=== PATIENT | female | born 1985 | race Hispanic/Latino ===

== ENCOUNTER 2019-01-11 15:28 | Emergency (ER) | payer OTHER ==
[2019-01-11 17:13] LABS: APPEARANCE,URINE Clear (CLEAR); BILIRUBIN,URINE Negative (NEGATIVE); COLOR,URINE Yellow (YELLOW); GLUCOSE, URINE (UA) Negative (NEGATIVE); KETONES,URINE Negative (NEGATIVE); LEUKOCYTE ESTERASE ,URINE Moderate (NEGATIVE); NITRATE,URINE Negative (NEGATIVE); OCCULT BLOOD,URINE Negative (NEGATIVE); PH,URINE 5.5 (5.0-8.0); PROTEIN,URINE Negative (NEGATIVE); UROBILINOGEN,URINE 0.2 mg/dL (0.2-1.0)
[2019-01-11 17:18] LABS: BACTERIA,URINE Few /HPF (None Seen); RBC,URINE None Seen /HPF (0-1)
[2019-01-11] MEDS ORDERED: LIDOCAINE HCL-MPF 1% 2ML VIAL ONE (17:55)
[2019-01-11] MEDS ORDERED: PHENAZOPYRIDINE HCL 200 MG TABLET ONE (17:55)
[2019-01-11] MEDS ORDERED: CEFTRIAXONE SODIUM 1 GM ONE (17:55)
== END 2019-01-11 18:35 | disposition home or self-care (01) ==
LOC: EDH 15:28
DX: N39.0 Urinary tract infection, site not specified (principal); Z98.51 Tubal ligation status; Z72.0 Tobacco use
CPT/HCPCS: 81001; 81025; 96372; 99284; J0696; J3490

== ENCOUNTER 2020-02-06 03:51 | Emergency (ER) | payer SELFPAY ==
[2020-02-06 04:12] LABS: APPEARANCE,URINE TURBID (CLEAR); BILIRUBIN,URINE NEGATIVE (NEGATIVE); GLUCOSE, URINE (UA) NEGATIVE (NEGATIVE); KETONES,URINE NEGATIVE (NEGATIVE); LEUKOCYTE ESTERASE ,URINE LARGE (NEGATIVE); NITRATE,URINE NEGATIVE (NEGATIVE); OCCULT BLOOD,URINE SMALL (NEGATIVE); PROTEIN,URINE 30 mg/dL (NEGATIVE); UROBILINOGEN,URINE 0.2 mg/dL (0.2-1.0)
[2020-02-06 04:15] LABS: COLOR,URINE COLORLESS (YELLOW)
[2020-02-06 04:19] LABS: HCG,QUAL RESULT NEGATIVE (NEGATIVE)
[2020-02-06 04:22] LABS: AMPHET/METH SCREEN,URINE NEGATIVE (NEGATIVE); BARBITURATE SCREEN, URINE NEGATIVE (NEGATIVE); BENZODIAZEPINES SCREEN,URINE NEGATIVE (NEGATIVE); CANNABINOID SCREEN,URINE NEGATIVE (NEGATIVE); OPIATE SCREEN,URINE NEGATIVE (NEGATIVE)
[2020-02-06 04:22] LABS: BASOPHILS % (AUTO) 0.3 % (0.0-5.0); EOSINOPHILS % (AUTO) 0.1 % (0.0-8.0); HEMATOCRIT 39.8 % (36-48); LYMPHOCYTES % (AUTO) 14.8 % (21.0-51.0); MEAN CORPUSCULAR HEMOGLOBIN 27.9 pg (27.0-33.0); MEAN CORPUSCULAR HGB CONC 33.4 g/dL (32.0-36.0); MEAN CORPUSCULAR VOLUME 83.6 fL (79-99); MONOCYTES % (AUTO) 3.8 % (3.0-13.0); NEUTROPHILS % (AUTO) 80.7 % (40.0-77.0); PLATELET COUNT (AUTO) 344 K/uL (130-400); RED BLOOD CELL COUNT(AUTO) 4.76 MIL/uL (4.00-5.50); RED CELL DISTRIBUTION WIDTH 14.9 % (11.0-15.5); WHITE BLOOD COUNT (AUTO) 8.8 K/uL (4.8-10.8)
[2020-02-06 04:27] LABS: BACTERIA,URINE Moderate /HPF (None Seen); SQUAMOUS EPITHELIAL CELL,UR 30-50 /HPF (0-2); TRICHOMONAS,URINE Many /LPF (None Seen)
[2020-02-06 04:35] LABS: CARBON DIOXIDE 20 mmol/L (21-32); CHLORIDE 105 mmol/L (101-111); CREATININE 0.6 mg/dL (0.5-1.5); GLOMERULAR FILTR. RATE CALC 120 mL/min (>60); GLUCOSE,RANDOM 116 mg/dL (70-105); POTASSIUM 3.7 mmol/L (3.5-5.1); SODIUM SERUM 140 mmol/L (136-145); UREA NITROGEN, BLOOD 4 mg/dL (7-18)
[2020-02-06 04:41] LABS: ALANINE AMINOTRANSFERASE 17 U/L (12-78); ALCOHOL, BLOOD 153 mg/dL (0-10); ASPARTATE AMINOTRANSFERASE 18 U/L (10-37); BILIRUBIN,TOTAL 0.2 mg/dL (0.2-1.0); TOTAL PROTEIN, SERUM 8.2 g/dL (6.0-8.3)
[2020-02-06 04:45] LABS: ACETAMINOPHEN < 1 mcg/mL (10-30); SALICYLATE < 2.8 mg/dL (2.8-20.0)
[2020-02-06 05:06] LABS: COCAINE SCREEN,URINE POSITIVE (NEGATIVE); PHENCYCLIDINE SCREEN,URINE NEGATIVE (NEGATIVE)
[2020-02-06] MEDS ORDERED: SODIUM CHLORIDE 0.9% 1000ML 1,000 ML IV ONE (08:47)
[2020-02-06] MEDS ORDERED: CEFTRIAXONE SODIUM 1 GM ONE (08:48)
== END 2020-02-06 11:53 | disposition home or self-care (01) ==
LOC: EDH 03:51
DX: S50.811A Abrasion of right forearm, initial encounter (principal); F14.10 Cocaine abuse, uncomplicated; A59.9 Trichomoniasis, unspecified; F10.129 Alcohol abuse with intoxication, unspecified; X78.1XXA Intentional self-harm by knife, initial encounter; Y93.89 Activity, other specified; Y92.89 Other specified places as the place of occurrence of the external cause; Y99.8 Other external cause status
CPT/HCPCS: 36415; 80053; 80305; 81001; 81025; 85025; 87088; 96374; 99283; G0480 ×3; G0481; J0696; J7030

== ENCOUNTER 2021-06-16 13:57 | Emergency (ER) | payer SELFPAY ==
[~2021-06-16] VITALS: Ht 160 cm; Wt 68.0 kg
[2021-06-16 14:43] LABS: APPEARANCE,URINE Cloudy (CLEAR); BILIRUBIN,URINE Negative (NEGATIVE); COLOR,URINE Yellow (YELLOW); GLUCOSE, URINE (UA) Negative (NEGATIVE); KETONES,URINE Trace mg/dL (NEGATIVE); LEUKOCYTE ESTERASE ,URINE Moderate (NEGATIVE); NITRATE,URINE Negative (NEGATIVE); OCCULT BLOOD,URINE Negative (NEGATIVE); PH,URINE 5.5 (5.0-8.0); PROTEIN,URINE Negative (NEGATIVE)
[2021-06-16 14:46] LABS: HCG,QUAL RESULT NEGATIVE (NEGATIVE)
[2021-06-16 14:51] LABS: AMPHET/METH SCREEN,URINE NEGATIVE (NEGATIVE); BARBITURATE SCREEN, URINE NEGATIVE (NEGATIVE); BENZODIAZEPINES SCREEN,URINE NEGATIVE (NEGATIVE); CANNABINOID SCREEN,URINE NEGATIVE (NEGATIVE); COCAINE SCREEN,URINE POSITIVE (NEGATIVE); OPIATE SCREEN,URINE NEGATIVE (NEGATIVE); PHENCYCLIDINE SCREEN,URINE NEGATIVE (NEGATIVE)
[2021-06-16 15:00] LABS: BASOPHILS % (AUTO) 0.7 % (0.0-5.0); EOSINOPHILS % (AUTO) 1.8 % (0.0-8.0); HEMATOCRIT 42.4 % (36-48); LYMPHOCYTES % (AUTO) 21.3 % (21.0-51.0); MEAN CORPUSCULAR HEMOGLOBIN 29.9 pg (27.0-33.0); MEAN CORPUSCULAR HGB CONC 33.5 g/dL (32.0-36.0); MEAN CORPUSCULAR VOLUME 89.3 fL (79-99); NEUTROPHILS % (AUTO) 70.9 % (40.0-77.0); PLATELET COUNT (AUTO) 304 K/uL (130-400); RED BLOOD CELL COUNT(AUTO) 4.75 MIL/uL (4.00-5.50); RED CELL DISTRIBUTION WIDTH 14.6 % (11.0-15.5); WHITE BLOOD COUNT (AUTO) 7.6 K/uL (4.8-10.8)
[2021-06-16 15:11] LABS: BACTERIA,URINE Moderate /HPF (None Seen); MUCUS,URINE Moderate LPF (None Seen); SQUAMOUS EPITHELIAL CELL,UR Many /HPF (0-2)
[2021-06-16 15:20] LABS: CREATININE 0.7 mg/dL (0.5-1.5); POTASSIUM 4.2 mmol/L (3.5-5.1)
[2021-06-16 15:24] LABS: ALBUMIN 3.6 g/dL (3.5-5.0); BILIRUBIN,TOTAL 0.3 mg/dL (0.2-1.0); TOTAL PROTEIN, SERUM 7.6 g/dL (6.0-8.3)
[2021-06-16 15:29] LABS: HCG,QUANTITATIVE 0 mIU/mL (0-5); LIPASE 106 U/L (114-286)
[2021-06-16] MEDS ORDERED: PHENAZOPYRIDINE HCL 200 MG TABLET PO ONE (15:30)
[2021-06-16] MEDS ORDERED: CEFTRIAXONE 1G VIAL IM ONE (15:30)
[2021-06-16] MEDS ORDERED: IBUP-1552 PO (16:29)
[2021-06-16] MEDS ORDERED: CEPH500B PO (16:29)
[2021-06-16] MEDS ORDERED: PHEN-847 PO (16:29)
[2021-06-16] MEDS ORDERED: LACT10PA5 PO (16:29)
[2021-06-16] MEDS ORDERED: MAGNESIUM CITRATE 296 ML SOLUTION PO ONE (16:30)
[2021-06-16] MEDS ORDERED: LACTULOSE 20 GM/30 ML UDCUP PO ONE (16:30)
[2021-06-16 16:33] VITALS: BP 125/77
== END 2021-06-16 16:57 | disposition home or self-care (01) ==
LOC: EDH 13:57
DX: N39.0 Urinary tract infection, site not specified (principal); N83.202 Unspecified ovarian cyst, left side; K59.00 Constipation, unspecified; F14.10 Cocaine abuse, uncomplicated
CPT/HCPCS: 36415; 74176; 80053; 80305; 81001; 81025; 82140; 83690 ×2; 84702; 85025; 87088; 96372; 99284; J0696

== ENCOUNTER 2021-09-22 20:53 | Emergency (ER) | payer SELFPAY ==
[~2021-09-22] VITALS: Ht 160 cm; Wt 67.6 kg
[~2021-09-22 20:53] MED LIST: CEPH500B PO; IBUP-1552 PO; LACT10PA5 PO; PHEN-847 PO
[2021-09-22 21:26] LABS: APPEARANCE,URINE CLEAR (CLEAR); BILIRUBIN,URINE NEGATIVE (NEGATIVE); COLOR,URINE YELLOW (YELLOW); GLUCOSE, URINE (UA) NEGATIVE (NEGATIVE); KETONES,URINE NEGATIVE (NEGATIVE); LEUKOCYTE ESTERASE ,URINE SMALL (NEGATIVE); NITRATE,URINE NEGATIVE (NEGATIVE); OCCULT BLOOD,URINE NEGATIVE (NEGATIVE); PROTEIN,URINE NEGATIVE (NEGATIVE)
[2021-09-22 21:30] LABS: HCG,QUAL RESULT NEGATIVE (NEGATIVE)
[2021-09-22] MEDS ORDERED: LACTULOSE 20 GM/30 ML UDCUP PO ONE (21:30)
[2021-09-22] MEDS ORDERED: MAGNESIUM CITRATE 296 ML SOLUTION PO ONE (21:30)
[2021-09-22 21:47] LABS: BACTERIA,URINE Few /HPF (None Seen); SQUAMOUS EPITHELIAL CELL,UR Moderate /HPF (0-2)
[2021-09-22] MEDS ORDERED: LACT10PA5 PO (22:08)
[2021-09-22] MEDS ORDERED: CEPH500B PO (22:08)
[2021-09-22] MEDS ORDERED: DICY20TA2 PO (22:09)
[2021-09-22] MEDS ORDERED: CEFTRIAXONE 1G VIAL IM ONE (22:30)
[2021-09-22 23:10] VITALS: BP 126/84
== END 2021-09-22 23:15 | disposition home or self-care (01) ==
LOC: EDH 20:53
DX: K59.00 Constipation, unspecified (principal); N39.0 Urinary tract infection, site not specified; Z79.1 Long term (current) use of non-steroidal anti-inflammatories (NSAID)
CPT/HCPCS: 74018; 81001; 81025; 87088; 96372; 99284; J0696

== ENCOUNTER 2022-07-14 14:44 | Emergency (ER) | payer OTHER ==
[~2022-07-14] VITALS: Ht 160 cm; Wt 65.8 kg
[~2022-07-14 14:44] MED LIST changes: +DICY20TA2 PO
[2022-07-14 14:46] VITALS: BP 121/92
[2022-07-14] MEDS ORDERED: DIPH25 PO (16:55)
[2022-07-14] MEDS ORDERED: PRED20TA3 PO (16:55)
== END 2022-07-14 17:11 | disposition home or self-care (01) ==
LOC: EDH 14:44
DX: L23.1 Allergic contact dermatitis due to adhesives (principal); Z79.1 Long term (current) use of non-steroidal anti-inflammatories (NSAID)

== ENCOUNTER 2023-04-06 19:40 | Emergency (ER) | payer OTHER ==
[~2023-04-06 19:40] MED LIST changes: +DIPH-1242 PO; +PRED20TA3 PO
== END 2023-04-06 20:15 | disposition left against medical advice (07) ==
LOC: EDH 19:40
DX: R68.89 Other general symptoms and signs (principal); Z53.21 Procedure and treatment not carried out due to patient leaving prior to being seen by health care provider